=== PATIENT | female | born 2000 | race Caucasian/White ===

== ENCOUNTER 2018-03-26 18:53 | Emergency (ER) | payer OTHER ==
[2018-03-26] MEDS: LORAZEPAM 1 MG TAB PO (19:50)
== END 2018-03-26 20:18 | disposition home or self-care (01) ==
LOC: FTE 18:53
DX: F41.9 Anxiety disorder, unspecified (principal); R00.0 Tachycardia, unspecified
CPT/HCPCS: 93005; 99283